=== PATIENT | female | born 1935 | race Caucasian/White ===

== ENCOUNTER 2017-06-21 09:23 | Inpatient (IN) | payer MEDICARE, OTHER ==
[2017-06-21 09:23] VITALS: BMI 24.6
--- NOTE | 2017-06-21 11:08 | C.PDOC ---
History Of Present Illness 81 year old female who presents to the ER with daughter for a complaints of questionable vaginal bleeding that began this morning. As per daughter, patient was sitting on the toilet when she noticed blood in the toilet but is unsure of the source. Daughter reports patient is on hemo dialysis, Wednesday, Wednesday, Wednesday, and states in the past they had her on heparin which would cause her to bleed vaginally. Daughter states they stopped the heparin which stopped vaginal bleeding stopped as well; however, she believes patient might have been started on heparin again. Patient's PMD is Dr. Martinez, nephologist is Dr. Guevara. Patient denies abdominal pain or other associated symptoms. Time Seen by Provider: 06/21/17 10:40 Chief Complaint (Nursing): Female Genitourinary History Per: Patient, Family History/Exam Limitations: no limitations Onset/Duration Of Symptoms: Hrs Current Symptoms Are (Timing): Still Present Quality Of Discomfort: Unable To Describe Associated Symptoms: denies: Fever, Nausea, Vomiting Alleviating Factors: None Recent travel outside of the [place]: No Past Medical History Reviewed: Historical Data, Nursing Documentation, Vital Signs Vital Signs: Last Vital Signs Temp 97.6 F 06/21/17 09:30 Pulse 67 06/21/17 13:11 Resp 16 06/21/17 13:11 BP 195/62 H 06/21/17 13:11 Pulse Ox 100 06/21/17 13:33 - Medical History PMH: Alzheimer's Disease, Anemia, Anxiety, CAD, CHF, COPD, Dementia, Depression , Fractures (pelvis), HTN, End Stage Renal Disease, Chronic Kidney Disease ( DIALYSIS 3X WK WED/WED/WED) Surgical History: CABG (2011) - [facility] Procedures HEMODIALYSIS (07/09/14) NON-INVASIVE MECHANICAL VENTILATION (10/09/13) PERFORMANCE OF URINARY FILTRATION, MULTIPLE (07/09/15) Family History: States: Unknown Family Hx - Social History Hx Tobacco Use: No Hx Alcohol Use: No Hx Substance Use: No - Immunization History Hx Tetanus Toxoid Vaccination: No Hx Influenza Vaccination: No Hx Pneumococcal Vaccination: Yes (2011) Review Of Systems Except As Marked, All Systems Reviewed And Found Negative. Constitutional: Negative for: Fever, Chills Cardiovascular: Negative for: Chest Pain, Palpitations, Light Headedness Respiratory: Negative for: Shortness of Breath Gastrointestinal: Negative for: Abdominal Pain Genitourinary: Positive for: Vaginal Bleeding (Questionable) Musculoskeletal: Negative for: Back Pain Skin: Negative for: Rash Neurological: Negative for: Dizziness Physical Exam - Physical Exam Appears: Non-toxic, No Acute Distress Skin: Normal Color, Warm, Dry Head: Atraumatic, Normacephalic Oral Mucosa: Moist Chest: Symmetrical Cardiovascular: Rhythm Regular Respiratory: Normal Breath Sounds, No Rales, No Rhonchi, No Wheezing Gastrointestinal/Abdominal: Soft, No Tenderness Rectal: Other (Positive bright red blood) Pelvic: Normal Bimanual Exam, No Vaginal Bleeding Neurological/Psych: Oriented x3, Normal Speech, Normal Cognition ED Course And Treatment - Laboratory Results Result Diagrams: 06/21/17 11:08 06/21/17 11:08 ECG: Interpreted By Me ECG Rhythm: Sinus Rhythm Rate From EC O2 Sat by Pulse Oximetry: 100 (Room air) Pulse Ox Interpretation: Normal - Radiology CXR: Interpreted by Me, Viewed By Me CXR Interpretation: Yes: No Acute Disease (Unchanged from prior) Progress - Re-Evaluation Re-evaluation Note: 06/21/17 11:59 EXAM UNCH VSS. PENDING CALLBACK PMD 06/21/17 12:25 PENDING CALLBACK PMD 06/21/17 13:27 D/W DR MARTINEZ WILL ADMIT PENDING CALLBACK DR GARCIA 06/21/17 13:38 D/W DR GUEVARA WILL CONSULT - Data Reviewed Data Reviewed: Lab, Diagnostic imaging, EKG, Old records - Continuity of Care Discussed patient case with:: Patient, Family-HIPPA compliant, PMD Discussed pt. case with warehouse consultant/specialty: Nephrology Medical Decision Making Medical Decision Making: Plan: * Blood work * EKG * CXR * Occult blood test * Protonix * Pepcid 11:59: Call placed out to Dr. Martinez, message left with answering service. 12:25: Second call placed out to Dr. Martinez, message left with answering service. Disposition Counseled Patient/Family Regarding: Studies Performed, Diagnosis - Disposition Disposition: HOSPITALIZED Disposition Time: 13:33 Condition: STABLE Forms: [facility] (Brazilian) - POA Present On Arrival: None - Clinical Impression Clinical Impression: ESRD on dialysis, GI bleed, Hyperkalemia - Scribe Statement The provider has reviewed the documentation as recorded by the Scribe Mendel Red All medical record entries made by the Anjelicaibstephany were at my direction and personally dictated by me. I have reviewed the chart and agree that the record accurately reflects my personal performance of the history, physical exam, medical decision making, and the department course for this patient. I have also personally directed, reviewed, and agree with the discharge instructions and disposition. Decision To Admit - Pt Status Changed To: Hospital Disposition Of: Inpatient - Admit Certification Admit to Inpatient:: After my assessment, the patient will require hospitalization for at least two midnights. This is because of the severity of symptoms shown, intensity of services needed, and/or the medical risk in this patient being treated as an outpatient. - InPatient: Physician Admission Certification: I certify that this patient requires 2 or more midnights of care for the following reason:: SEE NOTE - . Bed Request Type: Telemetry Admitting Physician: Tiffany Martinez Patient Diagnosis: ESRD on dialysis, GI bleed, Hyperkalemia
[2017-06-21] MEDS ORDERED: Pantoprazole 80 MG in Sodium Chloride 0.9% 100 ML IV STA (11:19)
[2017-06-21 11:22] LABS: BASO % 0.6 % (0.0-2.0); EOS # 0.1 K/uL (0.0-0.7); EOS % 1.3 % (0.0-4.0); HEMATOCRIT 37.1 % (34.0-47.0); LYMPH % 17.7 % (20.0-40.0); MEAN CELL VOLUME 104.6 fL (81.0-99.0); MEAN CORPUSCULAR HEMOGLOBIN 35.9 pg (27.0-31.0); MEAN CORPUSCULAR HGB CONC 34.3 g/dL (33.0-37.0); MEAN PLATELET VOLUME 9.1 fL (7.2-11.7); MONO # 0.5 K/uL (0.0-0.8); MONO % 9.1 % (0.0-10.0); RED CELL DISTRIBUTION WIDTH 15.8 % (11.5-14.5); WHITE BLOOD COUNT 5.7 K/uL (4.8-10.8)
[2017-06-21 11:30] LABS: INR 0.9
[2017-06-21 11:34] LABS: ALB/GLOB RATIO 1.2 (1.0-2.1); CALCIUM 9.5 mg/dl (8.6-10.4); TOTAL PROTEIN 7.9 g/dL (6.3-8.3)
[2017-06-21 11:56] LABS: POTASSIUM 6.2 mmol/L (3.6-5.2)
--- NOTE | 2017-06-21 12:03 | RAD ---
HISTORY: GI Bleeding COMPARISON: Chest x-ray performed 07/09/15 TECHNIQUE: Chest, one view. FINDINGS: LUNGS: Mild pulmonary venous congestion. Mild bibasilar atelectasis. Biapical pleural parenchymal scarring/ atelectasis. No significant pleural effusion or definite pneumothorax identified. Please note that chest x-ray has limited sensitivity for the detection of pulmonary masses. CARDIOVASCULAR: Cardiomegaly. Ectatic aorta. Dense atherosclerotic calcifications of the aorta. OSSEOUS STRUCTURES: Degenerative changes. VISUALIZED UPPER ABDOMEN: Unremarkable. OTHER FINDINGS: Surgical clips project over the right upper chest. IMPRESSION: Mild pulmonary venous congestion. Mild bibasilar atelectasis. Biapical pleural parenchymal scarring/ atelectasis. Cardiomegaly. Ectatic aorta. Dense atherosclerotic calcifications.
[2017-06-21] MEDS ORDERED: Bisacodyl 5mg EC Tab PO ONE ×4 (15:28→18:00)
[2017-06-21] MEDS ORDERED: Peg-Electrolyte Oral Soln 4L (Golytely) PO ONE (15:28)
--- NOTE | 2017-06-21 19:42 | CP.PCM.CON ---
History of Present Illness - History of Present Illness History of Present Illness: REASONS FOR CONSULT : ESRD ON HD M W F ESRD RELATED COMPLICATIONS SEVER HYPERKALEMIA .. K 6,2 NEEDS FOR STAT HD .. ORDERED CHART REV .. PT EXAMINED CASE D/W ER ATTENDING .. CASE D/W DR MARTINEZ 81 year old female who presents to the ER with daughter for a complaints of questionable vaginal bleeding that began this morning. As per daughter, patient was sitting on the toilet when she noticed blood in the toilet but is unsure of the source. Daughter reports patient is on hemo dialysis, Wednesday, Wednesday, Wednesday, and states in the past they had her on heparin which would cause her to bleed vaginally. Daughter states they stopped the heparin which stopped vaginal bleeding stopped as well; however, she believes patient might have been started on heparin again. Patient's PMD is Dr. Martinez, nephologist is Dr. Tobar. Patient denies abdominal pain or other associated symptoms. Time Seen by Provider: 06/21/17 10:40 Chief Complaint (Nursing): Female Genitourinary History Per: Patient, Family History/Exam Limitations: no limitations Onset/Duration Of Symptoms: Hrs Current Symptoms Are (Timing): Still Present Quality Of Discomfort: Unable To Describe Associated Symptoms: denies: Fever, Nausea, Vomiting Alleviating Factors: None Recent travel outside of the [place]: No Past Medical History Reviewed: Historical Data, Nursing Documentation, Vital Signs Vital Signs: Last Vital Signs Temp 97.6 F 06/21/17 09:30 Pulse 67 06/21/17 13:11 Resp 16 06/21/17 13:11 BP 195/62 H 06/21/17 13:11 Pulse Ox 100 06/21/17 13:33 - Medical History PMH: Alzheimer's Disease, Anemia, Anxiety, CAD, CHF, COPD, Dementia, Depression , Fractures (pelvis), HTN, End Stage Renal Disease, Chronic Kidney Disease ( DIALYSIS 3X WK WED/WED/WED) Surgical History: CABG (2011) - [facility] Procedures HEMODIALYSIS (07/09/14) NON-INVASIVE MECHANICAL VENTILATION (10/09/13) PERFORMANCE OF URINARY FILTRATION, MULTIPLE (07/09/15) Family History: States: Unknown Family Hx - Social History Hx Tobacco Use: No Hx Alcohol Use: No Hx Substance Use: No Past Patient History - Infectious Disease Hx of Infectious Diseases: None - Past Medical History & Family History Past Medical History?: Yes - Past Social History Smoking Status: Never Smoked - CARDIAC Hx Congestive Heart Failure: Yes Hx Hypertension: Yes - PULMONARY Hx Chronic Obstructive Pulmonary Disease (COPD): Yes - NEUROLOGICAL Hx Alzheimer's Disease: Yes Hx Dementia: Yes - HEENT Hx HEENT Problems: Yes Hx Cataracts: Yes - RENAL Hx Chronic Kidney Disease: Yes (DIALYSIS 3X WK MON/WED/FRI) - ENDOCRINE/METABOLIC Hx Endocrine Disorders: No - HEMATOLOGICAL/ONCOLOGICAL Hx Anemia: Yes - INTEGUMENTARY Hx Dermatological Problems: No - MUSCULOSKELETAL/RHEUMATOLOGICAL Hx Fractures: Yes (pelvis) - GASTROINTESTINAL Hx Gastrointestinal Disorders: No - GENITOURINARY/GYNECOLOGICAL Hx Genitourinary Disorders: No - PSYCHIATRIC Hx Anxiety: Yes Hx Depression: Yes Hx Substance Use: No - SURGICAL HISTORY Hx Coronary Artery Bypass Graft: Yes (2011) - ANESTHESIA Hx Anesthesia: Yes Hx Anesthesia Reactions: No Meds Allergies/Adverse Reactions: Allergies Allergy/AdvReac Type Severity Reaction Status Date / Time aspirin Allergy Mild RASH Verified 11/29/16 11:17 Penicillins Allergy Verified 06/21/17 10:01 Results - Vital Signs Recent Vital Signs: Last Vital Signs Temp 98 F 06/21/17 18:55 Pulse 67 06/21/17 18:55 Resp 16 06/21/17 18:55 BP 113/87 06/21/17 18:55 Pulse Ox 98 06/21/17 18:55 - Labs Result Diagrams: 06/21/17 11:08 06/21/17 11:08 Labs: Laboratory Results - last 24 hr 06/21/17 06/21/17 06/21/17 11:08 11:08 11:08 WBC 5.7 RBC 3.55 L Hgb 12.7 D Hct 37.1 MCV 104.6 H D MCH 35.9 H MCHC 34.3 RDW 15.8 H Plt Count 131 MPV 9.1 Neut % (Auto) 71.3 Lymph % (Auto) 17.7 L Crosby % (Auto) 9.1 Eos % (Auto) 1.3 Baso % (Auto) 0.6 Neut # 4.1 Lymph # 1.0 Crosby # 0.5 Eos # 0.1 Baso # 0.0 PT 10.2 INR 0.9 APTT 44 H Sodium 130 L Potassium 6.2 H* Chloride 90 L Carbon Dioxide 23 Anion Gap 23 H BUN 74 H Creatinine 6.7 H Est GFR ( Amer) 7 Est GFR (Non-Af Amer) 6 Random Glucose 75 Calcium 9.5 Total Bilirubin 1.0 AST 35 ALT 30 Alkaline Phosphatase 136 H Total Protein 7.9 Albumin 4.2 Globulin 3.7 Albumin/Globulin Ratio 1.2 Stool Occult Blood Blood Type Antibody Screen 06/21/17 06/21/17 11:43 11:57 WBC RBC Hgb Hct MCV MCH MCHC RDW Plt Count MPV Neut % (Auto) Lymph % (Auto) Crosby % (Auto) Eos % (Auto) Baso % (Auto) Neut # Lymph # Crosby # Eos # Baso # PT INR APTT Sodium Potassium Chloride Carbon Dioxide Anion Gap BUN Creatinine Est GFR ( Amer) Est GFR (Non-Af Amer) Random Glucose Calcium Total Bilirubin AST ALT Alkaline Phosphatase Total Protein Albumin Globulin Albumin/Globulin Ratio Stool Occult Blood Positive H Blood Type O POSITIVE Antibody Screen Negative Assessment & Plan - Assessment and Plan (Free Text) Assessment: ESRD WITH HYPERKALEMIA .. HD PRDERED STAT CAME IN WITH GI BLEED MULTIPLE CO MORBIDITIES C/O CURRENT CARE STAT HD .. GIVEN - Date & Time Date: 06/21/17 Time: 14:00
[2017-06-22] MEDS ORDERED: Bisacodyl 5mg EC Tab PO ONE ×2 (06:00→17:00)
[2017-06-22 09:02] LABS: POTASSIUM 4.8 mmol/L (3.6-5.2)
[2017-06-22 09:04] LABS: ALB/GLOB RATIO 1.1 (1.0-2.1); TOTAL PROTEIN 6.7 g/dL (6.3-8.3)
--- NOTE | 2017-06-22 09:12 | HP ---
HISTORY OF PRESENT ILLNESS: This is an 81-year-old female with end-stage renal disease, on hemodialysis and history of hypertension. The patient presented to the emergency room with symptoms of rectal bleeding x1 day. The patient had no active bleeding at the time of this evaluation, but as per ER physician evaluation, the patient had rectal exam that was positive for blood. The patient denied to have any similar symptoms before. She denied to have any shortness of breath or chest pain. The patient denied to have any abdominal pain. The patient declined to have colonoscopy before. REVIEW OF SYSTEMS: Other review of system is negative. ALLERGIES: THE PATIENT HAS ALLERGY TO ASPIRIN AND PENICILLIN. HOME MEDICATIONS: Include hydralazine 1 tablet three times a day, bisoprolol 1 tablet twice a day, amlodipine 5 mg daily, and Renvela 800 mg three times a day. PAST MEDICAL HISTORY: Hypertension and end-stage renal disease, on hemodialysis. SOCIAL HISTORY: No history of smoking, EtOH or substance abuse. FAMILY HISTORY: Noncontributory. PHYSICAL EXAMINATION: GENERAL: The patient is comfortable in bed, not in any cardiopulmonary distress. VITAL SIGNS: Blood pressure 158/56, temperature 97.9, respiratory rate 16, and pulse 67. HEENT: Pupils are equal and reactive to light. Normal-appearing mucosa of the conjunctivae, oropharynx, and nasal membrane mucosa. NECK: Supple. No JVD. No carotid bruits. No lymph node. No thyromegaly. CHEST AND LUNGS: Bilateral symmetrical expansion. Good air exchange. No rales. No rhonchi. CARDIOVASCULAR SYSTEM: PMI not localized. S1 and S2. No additional sounds. ABDOMEN: Normoactive bowel sounds. No tenderness. No organomegaly. No masses. EXTREMITIES: No cyanosis. No clubbing. No edema. KNITTED GARMENT FINISHER: Alert, awake, and oriented x2 and no neurological deficits could be appreciated. ASSESSMENT: 1. Rectal bleeding. 2. Hypertension. 3. End-stage renal disease, on hemodialysis. PLAN: We will give the patient Protonix, GI consult, and continue hemodialysis as per batch unit treater and follow up with GI recommendations and resume the patient's medications for hypertension. Tiffany Martinez MD [facility] # [id number]
[2017-06-22] MEDS ORDERED: Midazolam 2 MG/2 ML VIAL ONE (11:24)
[2017-06-22] MEDS ORDERED: Propofol 10 mg/ml Inj (20 ML) ONE (11:24)
[2017-06-22] MEDS ORDERED: Lidocaine Hydrochloride 10 ML INJ ONE (11:41)
[2017-06-22 11:50] LABS: BASO % 0.9 % (0.0-2.0); EOS # 0.1 K/uL (0.0-0.7); EOS % 1.9 % (0.0-4.0); HEMATOCRIT 35.2 % (34.0-47.0); LYMPH # 0.9 K/uL (1.0-4.3); LYMPH % 20.7 % (20.0-40.0); MEAN CELL VOLUME 104.6 fL (81.0-99.0); MEAN CORPUSCULAR HEMOGLOBIN 35.7 pg (27.0-31.0); MEAN CORPUSCULAR HGB CONC 34.1 g/dL (33.0-37.0); MEAN PLATELET VOLUME 9.1 fL (7.2-11.7); MONO # 0.5 K/uL (0.0-0.8); MONO % 11.6 % (0.0-10.0); RED CELL DISTRIBUTION WIDTH 15.9 % (11.5-14.5); WHITE BLOOD COUNT 4.5 K/uL (4.8-10.8)
[2017-06-22 12:06] LABS: POTASSIUM 4.7 mmol/L (3.6-5.2)
[2017-06-22] MEDS ORDERED: Peg-Electrolyte Oral Soln 4L (Golytely) PO ONE (13:00)
--- NOTE | 2017-06-22 18:40 | CP.PCM.PN ---
Subjective - Date & Time of Evaluation Date of Evaluation: 06/22/17 Time of Evaluation: 12:00 - Subjective Subjective: HAD HD YESTERDAY STAT FOR HYPERKALEMIA OFF THE FLOOR FOR EGD D/W DR JONES ,GI Objective - Vital Signs/Intake and Output Vital Signs (last 24 hours): Temp Pulse Resp BP Pulse Ox 98 F 93 H 20 190/67 H 97 06/22/17 15:43 06/22/17 15:43 06/22/17 15:43 06/22/17 15:43 06/22/17 15:43 Intake and Output: 06/22/17 06/22/17 06:59 18:59 Intake Total 200 375 Balance 200 375 - Medications Medications: Current Medications Metoclopramide HCl (Reglan) 5 mg IVP Q6 RACHEL - Labs Labs: 06/22/17 11:40 06/22/17 11:40 PT 10.2 SECONDS (9.7-12.2) 06/21/17 11:08 INR 0.9 06/21/17 11:08 APTT 44 SECONDS (21-34) H 06/21/17 11:08 Assessment and Plan - Assessment and Plan (Free Text) Assessment: ESRD ON HD M W F ANEMIA OF CKD .. H/H STABLE C/O CURRENT CARE FOR COLONOSCOPY IN AM PER DR JONES
--- NOTE | 2017-06-22 21:57 | PN ---
DATE: 06/22/2017 SUBJECTIVE: The patient is seen today, 06/22/2017. She is not in any cardiopulmonary distress. PHYSICAL EXAMINATION: VITAL SIGNS: Blood pressure 190/65, temperature 97.1, respiratory 20 and pulse 68. HEENT: Pupils equal and reactive to light. Normal-appearing mucosa of the conjunctivae, oropharynx and nasal membrane mucosa. NECK: Supple. No JVD. No carotid bruit. No lymph node. No thyromegaly. CHEST AND LUNGS: Bilateral symmetrical expansion. Good air exchange. No rales. No rhonchi. CARDIOVASCULAR SYSTEM: PMI not localized. S1 and S2. No additional sounds. ABDOMEN: Normoactive bowel sounds. No tenderness. No organomegaly. No masses. EXTREMITIES: No cyanosis. No clubbing. No edema. CENTRAL NERVOUS SYSTEM: Alert, awake, and oriented x2. No neurological deficits could be appreciated. ASSESSMENT: 1. Lower gastrointestinal bleeding. 2. End-stage renal disease, on hemodialysis. 3. Hypertension. PLAN: Continue current medications including proton-pump inhibitors. Follow the GI recommendations. The patient is being prepared for colonoscopy tomorrow. She is status post EGD today. Tiffany Martinez MD
[2017-06-23] MEDS ORDERED: Propofol 10 mg/ml Inj (20 ML) ONE (11:43)
[2017-06-23] MEDS ORDERED: Lidocaine Hydrochloride 5 ML INJ ONE (11:44)
[2017-06-23] MEDS ORDERED: Sodium Chloride 0.9% 500 ML IV ONE (11:46)
[2017-06-23] MEDS ORDERED: Belladonna-Phenobarbital PO STA (12:11)
--- NOTE | 2017-06-23 22:54 | CARD ---
APPROVED REPORT EKG Measurement Heart [id number] ID [id number] <Conclusion> Normal sinus rhythm Moderate voltage criteria for LVH, may be normal variant Nonspecific ST and T wave abnormality Abnormal ECG
--- NOTE | 2017-06-23 23:57 | CP.PCM.PN ---
Subjective - Date & Time of Evaluation Date of Evaluation: 06/23/17 Time of Evaluation: 12:00 - Subjective Subjective: DAUGHTER WAS FOUND ON THE BED SIDE PT IS OFF THE FLOOR FOR COLONOSCOPY PT ON HD M W F TO GET HER HD AFTER HER COLONOSCOPY ALL PREVIOUS EMR REVIEWED Objective - Vital Signs/Intake and Output Vital Signs (last 24 hours): Temp Pulse Resp BP Pulse Ox 98.5 F 71 18 137/58 L 95 06/23/17 19:11 06/23/17 19:55 06/23/17 19:11 06/23/17 19:55 06/23/17 19:11 - Medications Medications: Current Medications Amlodipine Besylate (Norvasc) 5 mg PO DAILY [facility] Last Admin: 06/23/17 10:00 Dose: Not Given Bisoprolol Fumarate (Zebeta) 5 mg PO BID [facility] Last Admin: 06/23/17 19:52 Dose: 5 mg Hydralazine HCl (Apresoline) 25 mg PO BID [facility] Last Admin: 06/23/17 19:52 Dose: 25 mg Metoclopramide HCl (Reglan) 5 mg IVP Q6 [facility] Last Admin: 06/23/17 19:51 Dose: 5 mg Sevelamer Carbonate (Renvela) 800 mg PO TIDAC [facility] Last Admin: 06/23/17 19:51 Dose: 800 mg - Labs Labs: 06/22/17 11:40 06/22/17 11:40 PT 10.2 SECONDS (9.7-12.2) 06/21/17 11:08 INR 0.9 06/21/17 11:08 APTT 44 SECONDS (21-34) H 06/21/17 11:08 Assessment and Plan - Assessment and Plan (Free Text) Assessment: ESRD ON HD W ANEMIA OF CKD .. H/H STABLE ALSO CAME IN WITH LOWER GI BLEED P : C/O CURRENT CARE
--- NOTE | 2017-06-24 03:31 | CON ---
DATE: 06/21/[address] Lianne Shannon to Dr. Tiffany Martinez. I was called for GI consultation by the admitting medical team. The patient is seen and fully examined on 06/21/2017 as requested by the admitting community as well as ER physician. The entire chart is reviewed including, but not limited to the most recent lab and radiology study results, current and the previous medication list, current and the previous medical events, allergy to medication list as well as all the available current and the previous medical records. Case was discussed at length with the staff in the emergency room as well as in the floor. HISTORY OF PRESENT ILLNESS: This is an 81-year-old female, who was admitted to the hospital through the emergency room in association with her daughter with the complain of rectal bleeding with questionable vaginal bleeding, most recent hemodialysis, she had been on heparin during her dialysis. Has to be mentioned that the patient recently had stopped the heparin on dialysis according to the daughter's statement despite source of bleeding rectally, reoccurred. No reported other significant complaints of mild dyspepsia with nausea recently and intermittent periods of crampy abdominal pain, mild. No chest pain or palpitation. No chills or fever. No reported significant complain shortness of breath. Has to be mentioned that all the information also obtained from the medical record, medical staff records as well as the patient's daughter. PAST MEDICAL HISTORY: Including but not limited to mainly: 1. Hypertension with congestive failure. 2. COPD. 3. Congestive heart failure. 4. End-stage renal disease, on hemodialysis. 5. Severe anxiety syndrome. 6. Questionable early stage of Alzheimer's disease. 7. Pelvic fracture before. 8. Coronary artery disease status post CABG. FAMILY HISTORY: Unknown. SOCIAL HISTORY: Known history of cigarette smoking or alcohol intake recently. CURRENT MEDICATIONS: Medication list are reviewed. ALLERGIES TO MEDICATIONS: UNCLEAR. PHYSICAL EXAMINATION: GENERAL: An 81-year-old female appeared to be awake, alert and oriented, communicating well with few Korean, but mainly a Kazakh language. VITAL SIGNS: The patient is afebrile with pulse of 73, respiratory rate 10 to 20, blood pressure of 192/60. HEENT: Showed dry oral mucous membrane. Nonicteric sclerae. LYMPH NODES: No lymphadenitis or lymphadenopathy. LUNGS: Few scattered marked crepitation. Breathing sounds are present bilaterally. HEART: Positive S1 and S2. ABDOMEN: Soft with mild generalized tenderness and slight distension. No mass or organomegaly. No rebound tenderness or guarding. RECTAL: Positive tone with trace of fresh blood. EXTREMITIES: With evidence of muscle wasting syndrome. No clubbing or cyanosis. No edematous changes. NEUROLOGIC: No reported new neurological deficits, sensory or motor. LABORATORY DATA: Initial blood workup at the time of the admission showed normal CBC, but increased BUN of 74, creatinine elevated to 6.7 with low sodium 130, with increase potassium 6.2, low calcium and elevated phosphorous. IMPRESSION: 1. Gastrointestinal bleeding, upper versus lower. 2. To rule out occult gastrointestinal malignancy. 3. To rule out gastric versus duodenal ulcer. 4. Electrolyte imbalance with hyponatremia, hyperkalemia. 5. Chronic renal failure, on hemodialysis. 6. Multiple past medical history including, but not limited to hypertension, congestive heart failure, coronary artery disease status post coronary artery bypass grafting as per record. 7. Known history of chronic obstructive pulmonary disease. 8. Depression by history. 9. Pelvic fracture by history as well as severe anxiety syndrome with previous history of anemia. SUGGESTIONS: 1. Agree with your plan. 2. Correct any underlying coagulopathy. 3. Cancer markers including CEA and CA-125 as well as CA-19-9. 4. Proton pump inhibitors. 5. Antireflux measures. 6. Sectional abdominal and pelvic CAT scan. 7. Endoscopic evaluation of the upper and lower GI tract when the patient is more stable clinically and after adequate preparation. 8. The patient for emergency hemodialysis. 9. Further recommendation to follow. Thank you for letting me to participate in your patient's case management. Lianne Shannon MD cc: Lianne Shannon MD
[2017-06-24 07:48] LABS: BASO % 0.7 % (0.0-2.0); EOS # 0.1 K/uL (0.0-0.7); EOS % 1.4 % (0.0-4.0); HEMATOCRIT 31.9 % (34.0-47.0); LYMPH # 0.7 K/uL (1.0-4.3); LYMPH % 13.9 % (20.0-40.0); MEAN CELL VOLUME 103.4 fL (81.0-99.0); MEAN CORPUSCULAR HEMOGLOBIN 35.5 pg (27.0-31.0); MEAN CORPUSCULAR HGB CONC 34.3 g/dL (33.0-37.0); MEAN PLATELET VOLUME 9.2 fL (7.2-11.7); MONO # 0.7 K/uL (0.0-0.8); MONO % 12.7 % (0.0-10.0); RED CELL DISTRIBUTION WIDTH 15.8 % (11.5-14.5); WHITE BLOOD COUNT 5.4 K/uL (4.8-10.8)
[2017-06-24 08:15] LABS: POTASSIUM 4.1 mmol/L (3.6-5.2)
[2017-06-24 08:18] LABS: CALCIUM 8.1 mg/dl (8.6-10.4)
--- NOTE | 2017-06-24 13:07 | PN ---
DATE: LOCATION: Room 652, Bed B. SUBJECTIVE: This is an 81-year-old female seen and examined around today, both upper and lower endoscopy, pathology report is still pending. Appear to be more awake and alert. Had been having hemodialysis, reported immediate complications. The entire chart is reviewed including, but not limited to the most recent lab and radiology study results, current and the previous medication list, current and the previous medical events. Case discussed at length with the staff and all the consultants. Today's lab showed hemoglobin dropped to 10.9 with dropped hematocrit of 31.9 with low sodium 131, and BUN went down to 22 and creatinine went down to 3.7 with low calcium at 8.1, previously done stool for occult blood was positive. PHYSICAL EXAMINATION: GENERAL: An 81-year-old female appeared to be more awake, alert. VITAL SIGNS: Afebrile with pulse of 72, respiratory rate 20-22 with blood pressure of 180/64. HEENT: Showed pale dry oral mucous membrane, nonicteric sclerae. LUNGS: Few scattered crepitation. Decreased air entry at bases. HEART: Positive S1 and S2. ABDOMEN: Soft with slight generalized tenderness. No mass or organomegaly. No rebound tenderness or guarding. RECTAL: The patient refused. EXTREMITIES: Without significant clinical or neurological changes recently. IMPRESSION: 1. Gastrointestinal blood loss. 2. Peptic ulcer disease. 3. Known history of hypertension, congestive heart failure with chronic obstructive pulmonary disease. 4. Endstage renal disease on hemodialysis. 5. Severe anxiety syndrome. 6. Anemia most likely secondary to above. 7. Known history of depression. 8. Diffuse diverticulosis by recent colonoscopy. SUGGESTIONS: 1. Agree with your plan. 2. Adjust oral intake. 3. Blood transfusion only as needed. Lianne Shannon MD cc: Lianne Shannon MD
--- NOTE | 2017-06-24 16:29 | CP.PCM.PN ---
Subjective - Date & Time of Evaluation Date of Evaluation: 06/24/17 Time of Evaluation: 14:00 - Subjective Subjective: SEEN ON RENAL F/U FEELS BETTER ON HD M W F ALL ABOVE NOTES READ Objective - Vital Signs/Intake and Output Vital Signs (last 24 hours): Temp Pulse Resp BP Pulse Ox 98 F 71 20 178/70 H 96 06/24/17 15:00 06/24/17 15:00 06/24/17 15:00 06/24/17 15:00 06/24/17 15:00 Intake and Output: 06/24/17 06/24/17 06:59 18:59 Intake Total 350 Balance 350 - Medications Medications: Current Medications Amlodipine Besylate (Norvasc) 5 mg PO DAILY [facility] Last Admin: 06/24/17 09:22 Dose: 5 mg Bisoprolol Fumarate (Zebeta) 5 mg PO BID [facility] Last Admin: 06/24/17 09:24 Dose: 5 mg Hydralazine HCl (Apresoline) 25 mg PO BID [facility] Last Admin: 06/24/17 09:22 Dose: 25 mg Metoclopramide HCl (Reglan) 5 mg IVP Q6 [facility] Last Admin: 06/24/17 12:30 Dose: 5 mg Sevelamer Carbonate (Renvela) 800 mg PO TIDAC [facility] Last Admin: 06/24/17 12:00 Dose: 800 mg - Labs Labs: 06/24/17 07:33 06/24/17 07:33 PT 10.2 SECONDS (9.7-12.2) 06/21/17 11:08 INR 0.9 06/21/17 11:08 APTT 44 SECONDS (21-34) H 06/21/17 11:08 Assessment and Plan - Assessment and Plan (Free Text) Assessment: ESRD ON HD M W ANEMIA OF CKD .. WELL GIB .. H/H STABLE C/O CURRENT CARE
[2017-06-25 06:32] LABS: BASO % 0.7 % (0.0-2.0); EOS # 0.1 K/uL (0.0-0.7); EOS % 1.8 % (0.0-4.0); HEMATOCRIT 31.9 % (34.0-47.0); LYMPH # 1.4 K/uL (1.0-4.3); LYMPH % 19.3 % (20.0-40.0); MEAN CORPUSCULAR HEMOGLOBIN 35.1 pg (27.0-31.0); MEAN CORPUSCULAR HGB CONC 33.8 g/dL (33.0-37.0); MEAN PLATELET VOLUME 9.1 fL (7.2-11.7); MONO # 0.8 K/uL (0.0-0.8); MONO % 11.2 % (0.0-10.0); RED CELL DISTRIBUTION WIDTH 15.7 % (11.5-14.5)
[2017-06-25 09:43] VITALS: O2SAT 98
--- NOTE | 2017-06-25 15:09 | CP.PCM.PN ---
Subjective - Date & Time of Evaluation Date of Evaluation: 06/25/17 Time of Evaluation: 15:10 - Subjective Subjective: ALERT, AWAKE, NO ACTIVE BLEEDING, NO DISTRESS. Objective - Vital Signs/Intake and Output Vital Signs (last 24 hours): Temp Pulse Resp BP Pulse Ox 97.3 F L 65 18 149/60 98 06/25/17 12:05 06/25/17 12:05 06/25/17 12:05 06/25/17 12:05 06/25/17 12:05 Intake and Output: 06/25/17 06/25/17 06:59 18:59 Intake Total 500 Balance 500 - Medications Medications: Current Medications Amlodipine Besylate (Norvasc) 5 mg PO DAILY [facility] Last Admin: 06/25/17 12:47 Dose: 5 mg Bisoprolol Fumarate (Zebeta) 5 mg PO BID [facility] Last Admin: 06/25/17 12:47 Dose: 5 mg Hydralazine HCl (Apresoline) 25 mg PO BID [facility] Last Admin: 06/25/17 12:47 Dose: 25 mg Metoclopramide HCl (Reglan) 5 mg IVP Q6 [facility] Last Admin: 06/25/17 12:47 Dose: 5 mg Sevelamer Carbonate (Renvela) 800 mg PO TIDAC [facility] Last Admin: 06/25/17 12:45 Dose: 800 mg - Labs Labs: 06/25/17 06:19 06/24/17 07:33 PT 10.2 SECONDS (9.7-12.2) 06/21/17 11:08 INR 0.9 06/21/17 11:08 APTT 44 SECONDS (21-34) H 06/21/17 11:08 Assessment and Plan - Assessment and Plan (Free Text) Assessment: Patient is seen and examined, post HD today. Alert, awake, denies sob or chest pains. Hemoglobin stabilized, no active bleeding. D/W DR Martinez, plan to discharge home today. Advised to f/u with PMD in 1 week.
--- NOTE | 2017-06-25 15:19 | PCM.HF ---
Heart Failure Core Measure - Heart Failure Ejection Fraction: 40 % or Greater (EF 66%) CAM Inhibitor Prescribed: No Contraindication/Reason for not providing: ESRD Beta-Thony Prescribed: Bisoprolol Angiotensin II Receptor Thony Prescribed: No Contraindication/Reason for not providing: ESRD AnticoagulationTherapy for Atrial Fibrillation/Atrialflutter: No Contraindication/Reason for not providing: NO HX AFIB Aldosterone Antagonist Prescribed: No Contraindication/Reason for not providing: EF >40 Hydralazine Nitrate Prescribed: Yes Implantable Cardioverter Defibrillator Therapy: No Contraindication/Reason for not providing: NO AICD AND EF >40 Cardiac Resynchronization Therapy Prescribed: No Contraindication/Reason for not providing: NO AICD AND EF >40 - Follow up Will be discharged to: Home Follow Up Date (must be within 7 days from discharge): 06/30/17 Follow Up Time: 09:00
[2017-06-25 15:34] VITALS: BP 198/75; PULSE 75; RESP 20; TEMP 98.6
--- NOTE | 2017-06-25 17:17 | PN ---
DATE: LOCATION: [facility], bed A. SUBJECTIVE: This is an 81-year-old female, seen and examined in rounds, during hemodialysis earlier this morning without reported active bleeding. The patient tolerated oral intake well. No reported chest pain, nausea, vomiting, chills or palpitation. The entire chart is reviewed including, but not limited to most recent lab and radiological results, current and the previous medication list, current and the previous medical events. Case discussed at length with the staff in the floor as well as with Dr. Martinez, admitting MD. Today's lab showed hemoglobin still low of 10.8 with low hematocrit of 31.9, but normal platelet count was reported before low sodium of 130 with increased BUN 22, creatinine 3.7 with low calcium. Stool for occult blood previously reported to be positive. PHYSICAL EXAMINATION: GENERAL: An 81-year-old female appeared to be awake and alert. VITAL SIGNS: Afebrile with pulse of 68, blood pressure of 130/54 with respiratory rate of 18 to 20. HEENT: Showed mildly pale dry oral mucoid membrane. Nonicteric sclerae. LUNGS: Few scattered crepitation. Decreased air entry at bases. HEART: Positive S1 and S2. ABDOMEN: Soft. Bowel sounds are present. No mass or organomegaly. No rebound tenderness or guarding. RECTAL: The patient refused. EXTREMITIES: Without significant edema, clubbing or cyanosis. NEUROLOGIC: No reported new neurological deficits, sensory or motor. IMPRESSION: 1. Gastrointestinal blood loss. 2. Anemia secondary to gastrointestinal blood loss. 3. Peptic ulcer disease. 4. Known history, but not limited to hypertension, chronic obstructive pulmonary disease, congestive heart failure. 5. Endstage renal disease. 6. Diffuse diverticulosis with left-sided colitis by recent colonoscopy as well as internal hemorrhoid. 7. Known history of depression and severe anxiety syndrome. SUGGESTIONS: 1. Continue current management. 2. Adjust oral intake with no seeds and no citrus. 3. Followup with cancer marker. Lianne Shanonn MD cc: Lianne Shannon MD
--- NOTE | 2017-06-26 01:57 | DS ---
REASON FOR ADMISSION: This is an 81-year-old female with history of multiple medical problems including end-stage renal disease on hemodialysis, was admitted for rectal bleeding. COURSE OF HOSPITALIZATION: The patient was admitted through medical floor and she had a GI consultation done by Dr. Crane. The patient underwent an EGD followed by colonoscopy. There was no active bleeding and the patient had only internal hemorrhoids and diverticulosis. The patient was stabilized and she was discharged home to continue her preadmission medications. The patient was advised to avoid NSAIDs and to follow with Dr. Crane and with Dr. Martinez. FINAL DIAGNOSES: 1. Rectal bleeding likely secondary to internal hemorrhoids and diverticulosis. 2. End-stage renal disease on hemodialysis. 3. Hypertension. [facility] MD Juan
== END 2017-06-25 15:49 | disposition home or self-care (01) | DRG 368 ==
LOC: C.ER 09:23 → C.9E 13:36 → C.6T 18:32
PROVIDERS: ADMIT Internal Medicine; ATTEND Internal Medicine
PROC: 5A1D70Z Performance of Urinary Filtration, Intermittent, Less than 6 Hours Per Day (ICD-10-PCS; 2017-06-21)
PROC: 0DDM8ZX Extraction of Descending Colon, Via Natural or Artificial Opening Endoscopic, Diagnostic (ICD-10-PCS; 2017-06-23)
PROC: 0DD68ZX Extraction of Stomach, Via Natural or Artificial Opening Endoscopic, Diagnostic (ICD-10-PCS; principal; 2017-06-23 11:52)
DX: B37.81 Candidal esophagitis (principal); N18.6 End stage renal disease; I13.2 Hypertensive heart and chronic kidney disease with heart failure and with stage 5 chronic kidney disease, or end stage renal disease; E87.1 Hypo-osmolality and hyponatremia; E87.5 Hyperkalemia; G30.9 Alzheimer's disease, unspecified; F02.80 Dementia in other diseases classified elsewhere, unspecified severity, without behavioral disturbance, psychotic disturbance, mood disturbance, and anxiety; D50.0 Iron deficiency anemia secondary to blood loss (chronic); K64.8 Other hemorrhoids; K57.90 Diverticulosis of intestine, part unspecified, without perforation or abscess without bleeding; K22.8 Other specified diseases of esophagus; K20.8 Other esophagitis; K44.9 Diaphragmatic hernia without obstruction or gangrene; K63.89 Other specified diseases of intestine; F41.9 Anxiety disorder, unspecified; I50.9 Heart failure, unspecified; I25.10 Atherosclerotic heart disease of native coronary artery without angina pectoris; J44.9 Chronic obstructive pulmonary disease, unspecified; D63.1 Anemia in chronic kidney disease; Z87.891 Personal history of nicotine dependence; Z95.1 Presence of aortocoronary bypass graft; Z99.2 Dependence on renal dialysis

== ENCOUNTER 2018-11-27 11:20 | Observation (INO) | payer MEDICARE, OTHER ==
[2018-11-27 11:20] VITALS: BMI 24.6
[2018-11-27] MEDS ORDERED: Sodium Chloride 0.9% 1,000 ML IV ONE (11:51)
[2018-11-27] MEDS ORDERED: Pantoprazole 80 MG in Sodium Chloride 0.9% 100 ML IV STA (11:51)
[2018-11-27] MEDS ORDERED: Sodium Chloride 0.9% 1,000 ML ONE (12:05)
--- NOTE | 2018-11-27 12:25 | C.PDOC ---
History Of Present Illness 82 year old female with a history of ESRD and A. fib, on Eliquis presents to the emergency department with complaints of GI bleed. Patient states that today she vomited coffee ground material, associated with epigastric discomfort. Patient denies fever, rectal bleed, and states that her last dialysis was yesterday. Time Seen by Provider: 11/27/18 11:48 Chief Complaint (Nursing): GI Problem History Per: Patient History/Exam Limitations: no limitations Onset/Duration Of Symptoms: Hrs Current Symptoms Are (Timing): Still Present Number Of Bleeding Episodes: One Quality Of Discomfort: "Pain" Associated Symptoms: Vomiting, Hematemesis, Coffee Ground material. denies: Nausea, Rectal Bleeding Past Medical History Reviewed: Historical Data, Nursing Documentation, Vital Signs Vital Signs: Last Vital Signs Temp 98.9 F 11/27/18 11:35 Pulse 150 H 11/27/18 11:35 Resp 20 11/27/18 11:35 BP 177/82 H 11/27/18 11:35 Pulse Ox 98 11/27/18 11:35 - Medical History PMH: Alzheimer's Disease, Anemia, Anxiety, CAD, CHF, COPD, Dementia, Depression, Fractures (pelvis), HTN, End Stage Renal Disease, Chronic Kidney Disease Denies: Kidney Stones Surgical History: CABG (2011) Denies: Appendectomy, Hernia Repair, Pacemaker - [facility] Procedures (06/21/17) (06/21/17) (06/21/17) HEMODIALYSIS (07/09/14) NON-INVASIVE MECHANICAL VENTILATION (10/09/13) PERFORMANCE OF URINARY FILTRATION, MULTIPLE (07/09/15) Family History: States: No Known Family Hx - Social History Hx Tobacco Use: No Hx Alcohol Use: No Hx Substance Use: No - Immunization History Hx Tetanus Toxoid Vaccination: No Hx Influenza Vaccination: No Hx Pneumococcal Vaccination: Yes (2011) Review Of Systems Except As Marked, All Systems Reviewed And Found Negative. Constitutional: Negative for: Fever, Chills Cardiovascular: Negative for: Chest Pain Respiratory: Negative for: Cough, Shortness of Breath Gastrointestinal: Positive for: Vomiting, Abdominal Pain, Hematemesis (coffee- ground material). Negative for: Nausea, Diarrhea Physical Exam - Physical Exam Appears: Non-toxic, No Acute Distress Skin: Normal Color, Warm, Dry Head: Atraumatic, Normacephalic Eye(s): bilateral: Normal Inspection, PERRL, EOMI Nose: Normal Oral Mucosa: Moist Lips: Other (coffee-ground material around lips) Throat: Normal, No Erythema, No Exudate Neck: Normal, Supple Cardiovascular: Rhythm Irregular, No Murmur Respiratory: Normal Breath Sounds, No Rales, No Rhonchi, No Wheezing Gastrointestinal/Abdominal: Soft, Tenderness (mild epigastric tenderness), No Guarding, No Rebound Rectal: Heme Negative Extremity: Normal ROM Neurological/Psych: Oriented x3, Normal Speech, Normal Cognition ED Course And Treatment - Laboratory Results Result Diagrams: 11/27/18 12:23 11/27/18 12:23 Interpretation Of ECG: Atrial fibrillation at 148 bpm, ST depression in lateral leads. O2 Sat by Pulse Oximetry: 98 (RA) Pulse Ox Interpretation: Normal - Other Rad CXR X-Ray: Viewed By Me, Read By Radiologist Interpretation: Surgical clips project over the lateral aspect of the right upper lung zone. Diffuse increased interstitial lung markings. Small nodular density in the left suprahilar region. Right hilar prominence. Patchy linear areas of atelectasis at the left lung base and right costophrenic angle. Enlarged ectatic aorta with calcification and plaque. Cardiomegaly. Degenerati ve changes in the spine and shoulders. Medical Decision Making Medical Decision Making: Plan: Blood Bank Type and Screen EKG CMP Hematology CXR Protonix 40mg IVP NaCl IV Fluids Zofran 4mg IVP Urinalysis Patient accepted by Dr. Harp to telemetry. Disposition Discussed With Dr.: Nancy Harp Doctor Will See Patient In The: Hospital Counseled Patient/Family Regarding: Studies Performed, Diagnosis - Disposition Disposition: HOSPITALIZED Disposition Time: 14:08 Condition: GUARDED Forms: Miscota (Guinean) - Clinical Impression Clinical Impression: Gastrointestinal hemorrhage, ESRD on dialysis, Rapid atrial fibrillation - Scribe Statement The provider has reviewed the documentation as recorded by the Scribe (Yobani Longoria) Provider Attestation: All medical record entries made by the Scribe were at my direction and personally dictated by me. I have reviewed the chart and agree that the record accurately reflects my personal performance of the history, physical exam, medical decision making, and the department course for this patient. I have also personally directed, reviewed, and agree with the discharge instructions and disposition.
[2018-11-27 12:29] LABS: BASO % 0.3 % (0.0-2.0); EOS % 0.1 % (0.0-4.0); HEMOGLOBIN 16.3 g/dL (11.0-16.0); LYMPH # 0.3 K/uL (1.0-4.3); LYMPH % 2.4 % (20.0-40.0); MEAN CELL VOLUME 102.4 fL (81.0-99.0); MEAN CORPUSCULAR HEMOGLOBIN 33.5 pg (27.0-31.0); MEAN CORPUSCULAR HGB CONC 32.7 g/dL (33.0-37.0); MONO # 0.4 K/uL (0.0-0.8); MONO % 3.4 % (0.0-10.0); NEUT # 12.1 K/uL (1.8-7.0); NEUT % 93.8 % (50.0-75.0); NRBC % 0.3 % (0.0-2.0); PLATELET COUNT 187 K/uL (130-400); RBC 4.86 Mil/uL (3.80-5.20); RED CELL DISTRIBUTION WIDTH 17.1 % (11.5-14.5); WHITE BLOOD COUNT 12.9 K/uL (4.8-10.8)
[2018-11-27 12:38] LABS: INR 1.2
--- NOTE | 2018-11-27 12:47 | RAD ---
Chest x-ray single frontal view HISTORY: GI bleeding. Comparison: 06/21/2017 Findings: Surgical clips project over the lateral aspect of the right upper lung zone. Diffuse increased interstitial lung markings. Small nodular density in the left suprahilar region Right hilar prominence. Patchy linear areas of atelectasis at the left lung base and right costophrenic angle. Enlarged ectatic aorta with calcification and plaque. Cardiomegaly. Degenerative changes in the spine and shoulders. Impression: Surgical clips project over the lateral aspect of the right upper lung zone. Diffuse increased interstitial lung markings. Small nodular density in the left suprahilar region Right hilar prominence. Patchy linear areas of atelectasis at the left lung base and right costophrenic angle. Enlarged ectatic aorta with calcification and plaque. Cardiomegaly. Degenerative changes in the spine and shoulders.
[2018-11-27 12:55] LABS: ALB/GLOB RATIO 1.2 (1.0-2.1); ALBUMIN 4.1 g/dL (3.5-5.0); CALCIUM 10.4 mg/dl (8.6-10.4)
[2018-11-27 13:03] LABS: ANISOCYTOSIS SLIGHT; BANDS 9 % (0-2); LYMPHOCYTE 9 % (20-40); MONOCYTE 4 % (0-10); NEUTROPHIL 76 % (50-75); PLATELET ESTIMATE NORMAL (NORMAL); POIKILOCYTOSIS SLIGHT; REACTIVE LYMPHOCYTES 2 % (0-0); TOTAL CELLS COUNTED 100
[2018-11-27 13:04] LABS: HYPOCHROMIC SLIGHT; OVALOCYTES SLIGHT; POLYCHROMIC SLIGHT
[2018-11-27 14:43] LABS: TROPONIN I 0.067 ng/mL (0.00-0.120)
[2018-11-27] MEDS ORDERED: Sodium Chloride 0.9% 1,000 ML IV SCH ×2 (15:30→18:00)
--- NOTE | 2018-11-27 15:45 | CP.PCM.HP ---
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 Pt was given her HD yesterday and began to feel abdominal pain soon after. Pt then had the dark emesisof about 1 cup full at home witnessed by daughters. Pt was immediately brought in to [facility] ED. Pt was found to have high HR of 180s and felt palps. Pt was given Cardizem and rate improved to 120s. As per daughter, Pt is non compliant with most of her home Rx. Pt has been losing weight over the last 2 years, and apetite has dropped significantly. 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, ESRD HD [facility]Th[facility] PSx: AAA dis 2015, colonoscopy 2017 FH: denies SocHx: denies drug alc smoke Home Rx Bisoprolol 5 BID Hydralizine 25 TID Amlodipine 5 QD Renvela 800 TID Present on Admission - Present on Admission Any Indicators Present on Admission: No Review of Systems - Review of Systems All systems: reviewed and no additional remarkable complaints except (as per HP I) Past Patient History - Infectious Disease Hx of Infectious Diseases: None - Past Medical History & Family History Past Medical History?: Yes - Past Social History Smoking Status: Never Smoked - CARDIAC Hx Congestive Heart Failure: Yes Hx Hypertension: Yes Hx Pacemaker: No - PULMONARY Hx Chronic Obstructive Pulmonary Disease (COPD): Yes - NEUROLOGICAL Hx Alzheimer's Disease: Yes Hx Dementia: Yes - HEENT Hx HEENT Problems: Yes Hx Cataracts: Yes - RENAL Hx Chronic Kidney Disease: Yes Hx Kidney Stones: No - ENDOCRINE/METABOLIC Hx Endocrine Disorders: No - HEMATOLOGICAL/ONCOLOGICAL Hx Anemia: Yes - INTEGUMENTARY Hx Dermatological Problems: No - MUSCULOSKELETAL/RHEUMATOLOGICAL Hx Fractures: Yes (pelvis) - GASTROINTESTINAL Hx Gastrointestinal Disorders: No - GENITOURINARY/GYNECOLOGICAL Hx Genitourinary Disorders: No - PSYCHIATRIC Hx Anxiety: Yes Hx Depression: Yes Hx Substance Use: No - SURGICAL HISTORY Hx Appendectomy: No Hx Coronary Artery Bypass Graft: Yes (2011) - ANESTHESIA Hx Anesthesia: Yes Hx Anesthesia Reactions: No Meds Allergies/Adverse Reactions: Allergies Allergy/AdvReac Type Severity Reaction Status Date / Time aspirin Allergy Mild RASH Verified 11/27/18 11:37 Penicillins Allergy Verified 11/27/18 11:37 Physical Exam - Constitutional Appears: Non-toxic, No Acute Distress, Cachectic, Chronically Ill - Head Exam Head Exam: ATRAUMATIC, NORMAL INSPECTION, NORMOCEPHALIC - Eye Exam Eye Exam: EOMI, Normal appearance, Scleral icterus Pupil Exam: Fixed, Miosis - ENT Exam ENT Exam: Mucous Membranes Dry. absent: Normal Oropharynx (dark brown rememnants on teeth from emesis) Results - Vital Signs Recent Vital Signs: Last Vital Signs Temp 97.7 F 11/27/18 15:11 Pulse 99 H 11/27/18 15:11 Resp 20 11/27/18 15:11 BP 154/82 H 11/27/18 15:11 Pulse Ox 98 11/27/18 15:11 - Labs Result Diagrams: 11/27/18 12:23 11/27/18 12:23 Labs: Laboratory Results - last 24 hr 11/27/18 11/27/18 11/27/18 12:23 12:23 12:23 WBC 12.9 H D RBC 4.86 Hgb 16.3 H D Hct 49.8 H MCV 102.4 H MCH 33.5 H MCHC 32.7 L RDW 17.1 H Plt Count 187 MPV 10.0 Neut % (Auto) 93.8 H Lymph % (Auto) 2.4 L [place] % (Auto) 3.4 Eos % (Auto) 0.1 Baso % (Auto) 0.3 Neut # (Auto) 12.1 H Lymph # (Auto) 0.3 L [place] # (Auto) 0.4 Eos # (Auto) 0.0 Baso # (Auto) 0.0 Neutrophils % (Manual) 76 H Band Neutrophils % 9 H Lymphocytes % (Manual) 9 L Reactive Lymphs % 2 H Monocytes % (Manual) 4 Platelet Estimate Normal Polychromasia Slight Hypochromasia (manual) Slight Poikilocytosis (manual Slight Anisocytosis (manual) Slight Macrocytosis (manual) Slight Ovalocytes Slight PT 13.0 H INR 1.2 APTT 45 H Sodium 137 Potassium 3.8 Chloride 90 L Carbon Dioxide 29 Anion Gap 22 H BUN 36 H Creatinine 2.8 H Est GFR ( Amer) 20 Est GFR (Non-Af Amer) 16 Random Glucose 102 Calcium 10.4 Total Bilirubin 3.4 H AST 67 H D ALT 8 L D Alkaline Phosphatase 207 H D Troponin I 0.0670 Total Protein 7.4 Albumin 4.1 Globulin 3.3 Albumin/Globulin Ratio 1.2 Blood Type Antibody Screen 11/27/18 13:03 WBC RBC Hgb Hct MCV MCH MCHC RDW Plt Count MPV Neut % (Auto) Lymph % (Auto) [place] % (Auto) Eos % (Auto) Baso % (Auto) Neut # (Auto) Lymph # (Auto) [place] # (Auto) Eos # (Auto) Baso # (Auto) Neutrophils % (Manual) Band Neutrophils % Lymphocytes % (Manual) Reactive Lymphs % Monocytes % (Manual) Platelet Estimate Polychromasia Hypochromasia (manual) Poikilocytosis (manual Anisocytosis (manual) Macrocytosis (manual) Ovalocytes PT INR APTT Sodium Potassium Chloride Carbon Dioxide Anion Gap BUN Creatinine Est GFR ( Amer) Est GFR (Non-Af Amer) Random Glucose Calcium Total Bilirubin AST ALT Alkaline Phosphatase Troponin I Total Protein Albumin Globulin Albumin/Globulin Ratio Blood Type O POSITIVE Antibody Screen Negative Assessment & Plan - Assessment and Plan (Free Text) Assessment: 82F admitted for AFib RVR, coffee ground emesis Plan: Afib w/ RVR HR in 160s->90s after meds SBP in 180s->120s after meds Cardizem 5 then 10 IVP given in ED Bisoprolol 5 BID started this PM restart home meds after EGD in AM Monitor Vitals q4 Holding Eliquis Hydralizine and Amlodipine NS @ 50 Dr Mario Cardio consulted f/u recs Coffee Ground Emesis H&H high- likely hemoconcentrated f/u CT chest abd pelv Dr Crane GI Consulted COAGs ok for upper EGD in AM hold Eliquis NPO past midnight repeat cbc, f/u ESRD CMP reviewed by team and over phone w/ Nephrivka Hannal on HD T Sat Renvela [address] Latesha Dunaway consulted, f/u recs HD tmrw PM after EGD f/u AM Labs Monitor I&Os NS @ 50 PPx Hold anticoag for EGD PTX 40 IVP qd scd's <Stanford Donohue H - Last Filed: 11/27/18 19:03> Results - Vital Signs Recent Vital Signs: Last Vital Signs Temp 97.6 F 11/27/18 15:45 Pulse 103 H 11/27/18 15:45 Resp 18 11/27/18 15:45 BP 171/84 H 11/27/18 15:45 Pulse Ox 99 11/27/18 15:45 - Labs Result Diagrams: 11/27/18 12:23 11/27/18 12:23 Labs: Laboratory Results - last 24 hr 11/27/18 11/27/18 11/27/18 12:23 12:23 12:23 WBC 12.9 H D RBC 4.86 Hgb 16.3 H D Hct 49.8 H MCV 102.4 H MCH 33.5 H MCHC 32.7 L RDW 17.1 H Plt Count 187 MPV 10.0 Neut % (Auto) 93.8 H Lymph % (Auto) 2.4 L [place] % (Auto) 3.4 Eos % (Auto) 0.1 Baso % (Auto) 0.3 Neut # (Auto) 12.1 H Lymph # (Auto) 0.3 L [place] # (Auto) 0.4 Eos # (Auto) 0.0 Baso # (Auto) 0.0 Neutrophils % (Manual) 76 H Band Neutrophils % 9 H Lymphocytes % (Manual) 9 L Reactive Lymphs % 2 H Monocytes % (Manual) 4 Platelet Estimate Normal Polychromasia Slight Hypochromasia (manual) Slight Poikilocytosis (manual Slight Anisocytosis (manual) Slight Macrocytosis (manual) Slight Ovalocytes Slight PT 13.0 H INR 1.2 APTT 45 H Puncture Site pCO2 pO2 HCO3 ABG pH ABG Total CO2 ABG O2 Saturation ABG Base Excess Jabari Test ABG Potassium Glucose Lactate Liter Flow Crit Value Called To Crit Value Called By Crit Value Read Back Blood Gas Notified Time Sodium 137 Potassium 3.8 Chloride 90 L Carbon Dioxide 29 Anion Gap 22 H BUN 36 H Creatinine 2.8 H Est GFR ( Amer) 20 Est GFR (Non-Af Amer) 16 Random Glucose 102 Calcium 10.4 Total Bilirubin 3.4 H AST 67 H D ALT 8 L D Alkaline Phosphatase 207 H D Troponin I 0.0670 Total Protein 7.4 Albumin 4.1 Globulin 3.3 Albumin/Globulin Ratio 1.2 Arterial Blood Potassium Blood Type Antibody Screen 11/27/18 11/27/18 13:03 18:23 WBC RBC Hgb Hct MCV MCH MCHC RDW Plt Count MPV Neut % (Auto) Lymph % (Auto) [place] % (Auto) Eos % (Auto) Baso % (Auto) Neut # (Auto) Lymph # (Auto) [place] # (Auto) Eos # (Auto) Baso # (Auto) Neutrophils % (Manual) Band Neutrophils % Lymphocytes % (Manual) Reactive Lymphs % Monocytes % (Manual) Platelet Estimate Polychromasia Hypochromasia (manual) Poikilocytosis (manual Anisocytosis (manual) Macrocytosis (manual) Ovalocytes PT INR APTT Puncture Site Rba pCO2 37 pO2 128 H HCO3 26.4 ABG pH 7.45 ABG Total CO2 26.8 ABG O2 Saturation 99.8 H ABG Base Excess 1.8 Jabari Test Na ABG Potassium 3.4 L Glucose 95 Lactate 8.1 H* Liter Flow 3.0 Crit Value Called To Mauricio davis Crit Value Called By Yonathan Crit Value Read Back Y Blood Gas Notified Time 182 Sodium 137.0 Potassium Chloride 97.0 L Carbon Dioxide Anion Gap BUN Creatinine Est GFR ( Amer) Est GFR (Non-Af Amer) Random Glucose Calcium Total Bilirubin AST ALT Alkaline Phosphatase Troponin I Total Protein Albumin Globulin Albumin/Globulin Ratio Arterial Blood Potassium 3.4 L Blood Type O POSITIVE Antibody Screen Negative Attending/Attestation - Attestation I have personally seen and examined this patient.: Yes I have fully participated in the care of the patient.: Yes I have reviewed all pertinent clinical information: Yes Notes (Text): 11/27/18 18:45 Medical attending: Patient was seen and examined by me in the ER with the medical residents as well as with family members at bedside. We later returned and spoke and examined the patient again with additional family members at bedside as well as spoke with others over speaker phone Because of her vague abdominal pain as well as the dark brown material found in her mouth on exam we ordered a CT of the chest/abdomen/pelvis I was shortly thereafter notified by radiology that the patient's CT scan unfortunately shows extensive acute ischemia of the bowel as well as changes due to this ischemia that is seen. The patient is not in pain at rest however on exam she does have tenderness at with palpation. The patient has reportedly by family been loosing weight over the past 5 years and recently the appetite has been very decreased. Surgery team was notified and they came and spoke with family and because the areas of ischemia are so extensive (affecting both the small and large bowl and also areas of the stomach), and condiering the patient's frail nature, it would not be possible to do surgery I jennifer out on a piece of paper to explain to one of the daughters what the acute ischemia of the bowels meant. It was a very simple diagram however it helped them understand The patient, we told her about the poor prognosis and the patient does NOT want to be intubated and does NOT want to have CPR. So we will change the code status to DNR and DNI The first ABG came back and the pH was not too bad however she has very high lactic levels of 8 Family has been made aware there may not be much time left and they are aware of poor prognosis For now we are ordering D5 with amps of bicarb, IV heparin ggt, NPO, and also morphine IV for pain - however given the already serious ABG values that we may not have much time left Family is very well aware Palliative care consult pending Patient is already DNR and DNI at this time thank you Stanford Donohue
[2018-11-27] MEDS ORDERED: Vancomycin 1 gm/NS 200 ml 1 GM/200 ML BAG IVPB ONE (16:15)
--- NOTE | 2018-11-27 18:08 | CP.PCM.CON ---
History of Present Illness - History of Present Illness History of Present Illness: General Surgery Dr. 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 Per family present @bedside, pt underwent HD yesterday and began to feel abd pain soon after. Pt had dark brown/black emesis, witnessed by daughters, which prompted the trip to the ED for eval. In the ED, pt found to be in Afib w/ RVR w/ HR in 180s. Pt was given meds for rate control which improved HR to 120s. Per daughter, pt is noncomplicant w/ most of her meds. Family reports significant weight loss over last 2yrs w/ significant decrease in appetite. CT C/A/P was ordered and completed which revealed pneumobilia and significant pneumatosis intestinalis in stomach, small bowel, and colon. Surgery was consult for Ischemic Bowel. (+) hematemesis x1 (-) CP, SOB, F/C, abd pain, nausea, melena/hematochezia, hematuria, PMHx: see above Meds reviewed in chart ALL: ASA, PCN PSHx: TAA endovascular repair, Raxo-bifem bypass, L AVF, colonoscopy SHx: denies tobacco, EtOH, drug use FHx: noncontributory Past Patient History - Infectious Disease Hx of Infectious Diseases: None - Past Medical History & Family History Past Medical History?: Yes - Past Social History Smoking Status: Never Smoked - CARDIAC Hx Congestive Heart Failure: Yes Hx Hypertension: Yes Hx Pacemaker: No - PULMONARY Hx Chronic Obstructive Pulmonary Disease (COPD): Yes - NEUROLOGICAL Hx Alzheimer's Disease: Yes Hx Dementia: Yes - HEENT Hx HEENT Problems: Yes Hx Cataracts: Yes - RENAL Hx Chronic Kidney Disease: Yes Hx Kidney Stones: No - ENDOCRINE/METABOLIC Hx Endocrine Disorders: No - HEMATOLOGICAL/ONCOLOGICAL Hx Anemia: Yes - INTEGUMENTARY Hx Dermatological Problems: No - MUSCULOSKELETAL/RHEUMATOLOGICAL Hx Fractures: Yes (pelvis) - GASTROINTESTINAL Hx Gastrointestinal Disorders: No - GENITOURINARY/GYNECOLOGICAL Hx Genitourinary Disorders: No - PSYCHIATRIC Hx Anxiety: Yes Hx Depression: Yes Hx Substance Use: No - SURGICAL HISTORY Hx Appendectomy: No Hx Coronary Artery Bypass Graft: Yes (2011) - ANESTHESIA Hx Anesthesia: Yes Hx Anesthesia Reactions: No Meds Allergies/Adverse Reactions: Allergies Allergy/AdvReac Type Severity Reaction Status Date / Time aspirin Allergy Mild RASH Verified 11/27/18 11:37 Penicillins Allergy Verified 11/27/18 11:37 - Medications Medications: Current Medications Bisoprolol Fumarate (Zebeta) 5 mg PO DAILY [facility] Last Admin: 11/27/18 15:12 Dose: 5 mg Hydralazine HCl (Apresoline) 25 mg PO TID [facility] Aztreonam 2 gm/ Sodium (Chloride) 100 mls @ 200 mls/hr IVPB Q8H [facility]; Protocol Sodium Chloride (Sodium Chloride 0.9%) 1,000 mls @ 70 mls/hr IV .[id number] [facility] Sevelamer Carbonate (Renvela) 800 mg PO TIDCC [facility] Results - Vital Signs Recent Vital Signs: Last Vital Signs Temp 97.6 F 11/27/18 15:45 Pulse 103 H 11/27/18 15:45 Resp 18 11/27/18 15:45 BP 171/84 H 11/27/18 15:45 Pulse Ox 99 11/27/18 15:45 - Labs Result Diagrams: 11/27/18 12:23 11/27/18 12:23 Labs: Laboratory Results - last 24 hr 11/27/18 11/27/18 11/27/18 12:23 12:23 12:23 WBC 12.9 H D RBC 4.86 Hgb 16.3 H D Hct 49.8 H MCV 102.4 H MCH 33.5 H MCHC 32.7 L RDW 17.1 H Plt Count 187 MPV 10.0 Neut % (Auto) 93.8 H Lymph % (Auto) 2.4 L [place] % (Auto) 3.4 Eos % (Auto) 0.1 Baso % (Auto) 0.3 Neut # (Auto) 12.1 H Lymph # (Auto) 0.3 L [place] # (Auto) 0.4 Eos # (Auto) 0.0 Baso # (Auto) 0.0 Neutrophils % (Manual) 76 H Band Neutrophils % 9 H Lymphocytes % (Manual) 9 L Reactive Lymphs % 2 H Monocytes % (Manual) 4 Platelet Estimate Normal Polychromasia Slight Hypochromasia (manual) Slight Poikilocytosis (manual Slight Anisocytosis (manual) Slight Macrocytosis (manual) Slight Ovalocytes Slight PT 13.0 H INR 1.2 APTT 45 H Sodium 137 Potassium 3.8 Chloride 90 L Carbon Dioxide 29 Anion Gap 22 H BUN 36 H Creatinine 2.8 H Est GFR ( Amer) 20 Est GFR (Non-Af Amer) 16 Random Glucose 102 Calcium 10.4 Total Bilirubin 3.4 H AST 67 H D ALT 8 L D Alkaline Phosphatase 207 H D Troponin I 0.0670 Total Protein 7.4 Albumin 4.1 Globulin 3.3 Albumin/Globulin Ratio 1.2 Blood Type Antibody Screen 11/27/18 13:03 WBC RBC Hgb Hct MCV MCH MCHC RDW Plt Count MPV Neut % (Auto) Lymph % (Auto) [place] % (Auto) Eos % (Auto) Baso % (Auto) Neut # (Auto) Lymph # (Auto) [place] # (Auto) Eos # (Auto) Baso # (Auto) Neutrophils % (Manual) Band Neutrophils % Lymphocytes % (Manual) Reactive Lymphs % Monocytes % (Manual) Platelet Estimate Polychromasia Hypochromasia (manual) Poikilocytosis (manual Anisocytosis (manual) Macrocytosis (manual) Ovalocytes PT INR APTT Sodium Potassium Chloride Carbon Dioxide Anion Gap BUN Creatinine Est GFR ( Amer) Est GFR (Non-Af Amer) Random Glucose Calcium Total Bilirubin AST ALT Alkaline Phosphatase Troponin I Total Protein Albumin Globulin Albumin/Globulin Ratio Blood Type O POSITIVE Antibody Screen Negative Assessment & Plan - Assessment and Plan (Free Text) Assessment: 82 y/o F w/ extensive ischemic bowel likely 2/2 to chronic low flow state Plan: - NPO/IVF - heparin gtt - IV abx - pain management - considering extent of ischemia seen on CT A/P, pt unlikely to benefit from surgery - recommend comfort care/medical management - f/u Palliative care consult Pt discussed w/ Dr. Andrea Han DO PGY3
--- NOTE | 2018-11-27 18:24 | CT ---
CT chest abdomen and pelvis HISTORY: Coffee-ground emesis. COMPARISON: None available. Technique: Multiple contiguous axial images were performed through the chest, abdomen, and pelvis without the use of intravenous contrast. Subsequently, sagittal and coronal reformatted images were obtained. This CT exam was performed using one or more of the following dose reduction techniques: Automated exposure control, adjustment of the mA and/or kV according to patient size, and/or use of iterative reconstruction technique. Findings: Right lung: Apical pleural thickening. Scattered atelectasis at the right lung base. Left lung: Apical pleural thickening. Small left pleural effusion. Dense consolidative changes and atelectasis at the left lung base. Trachea thru central airways are patent. Prominent hiatal hernia. Fluid-filled and distended esophagus with air and fluid. No significant axillary adenopathy. Heterogeneity of the thyroid. No significant mediastinal or hilar adenopathy. Cardiomegaly. Extensive coronary calcifications. Aneurysmal dilatation of the ascending aorta measuring 3.6 centimeters. A right axillary arterial vascular bypass graft is tunneled along the subcutaneous soft tissues of the right thorax and abdomen to the right common femoral artery with left common femoral bypass graft also noted. Extensive atherosclerotic vascular plaquing throughout the aortic arch and descending thoracic aorta. Aneurysmal dilatation is seen in the lower descending thoracic aorta measuring up to 4.2 centimeters. Dense circumferential and encapsulated calcification throughout the aorta extending from the aortic arch inferiorly throughout the thoracic and abdominal aorta. At the level of the mid abdominal aorta, there is complete /near complete occlusion of the mid abdominal aorta. Degenerative changes in the spine. Extensive portal venous gas seen throughout the liver consistent with bowel ischemic changes. 4 millimeter calcification in the right hepatic lobe. Hepatomegaly. Distended gallbladder. Spleen is preserved. Nodular thickening of the adrenal glands. Pancreas is preserved. Moderate hiatal hernia. Fluid-filled stomach. Extensive pneumatosis seen throughout the visualized small bowel as well as throughout the right hemicolon suggestive for extensive bowel ischemia. Air-filled collateral vessels extending to the portal vein where there is portal venous gas in the liver. There is a suggestion of possible punctate foci of free intraperitoneal air throughout the abdomen. Clinical correlation. Atrophic right kidney. Atrophic left kidney. Urinary bladder grossly preserved. Pelvic ascites. Underdistended and or thickened left hemicolon. Appendix within normal limits. Again identified is complete/near complete occlusion of the mid abdominal aorta. Given the lack of contrast, evaluation of the collateral vessels is markedly limited. Correlation with a CT angiogram of the abdomen would be helpful to better evaluate the branch and take off vessels. Additional vascular bypass graft seen within the anterior pelvis. Dense atherosclerotic calcification and plaque within iliac vessels. Degenerative changes in spine. Chronic fracture deformities of inferior pubic bones. Impression: 1. Extensive pneumatosis seen throughout the visualized small bowel as well as throughout the right hemicolon suggestive for extensive bowel ischemia / infarction. Air-filled collateral vessels extending to the portal vein where there is portal venous gas in the liver. Clinical correlation. Correlation with surgical consult is recommended. 2. Suggestion of possible punctate foci of free intraperitoneal air throughout the abdomen. Clinical correlation. 3. Dense circumferential and encapsulated calcification throughout the aorta extending from the aortic arch inferiorly throughout the thoracic and abdominal aorta. At the level of the mid abdominal aorta, there is complete /near complete occlusion of the mid abdominal aorta. Given the lack of contrast, evaluation of the collateral vessels is markedly limited. Correlation with a CT angiogram of the abdomen would be helpful to better evaluate the branch and take off vessels. Additional vascular bypass graft seen within the anterior pelvis. Dense atherosclerotic calcification and plaque within iliac vessels. 4. Pelvic ascites. 5. Prominent hiatal hernia. Fluid-filled and distended esophagus with air and fluid. 6. Small left pleural effusion. Dense consolidative changes and atelectasis at the left lung base. These findings were discussed with Dr. Stanford Donohue at 5:11 p.m. on 11/27/2018.
[2018-11-27 18:26] LABS: ARTERIAL BLOOD GAS HCO3 26.4 mmol/L (21-28); ARTERIAL BLOOD GAS O2 SAT 99.8 % (95-98); ARTERIAL BLOOD GAS PCO2 37 mm/Hg (35-45); ARTERIAL BLOOD GAS PH 7.45 (7.35-7.45); ARTERIAL BLOOD GAS PO2 128 mm/Hg (80-100); ARTERIAL BLOOD GAS TCO2 26.8 mmol/L (22-28)
[2018-11-27] MEDS ORDERED: Aztreonam 2 GM in Sodium Chloride 0.9% 100 ML IVPB ONE (19:30)
[2018-11-27] MEDS ORDERED: Heparin25000 units/250ml 1/2NS 25,000 UNITS/250 ML BAG IV PRN (19:30)
[2018-11-27] MEDS: Sodium Bicarbonate 8.4% 150 MEQ in Dextrose 5% In Water 850 ML IV SCH (21:39)
[2018-11-27 22:35] LABS: ARTERIAL BLOOD GAS HCO3 28.6 mmol/L (21-28); ARTERIAL BLOOD GAS O2 SAT 99.5 % (95-98); ARTERIAL BLOOD GAS PCO2 38 mm/Hg (35-45); ARTERIAL BLOOD GAS PH 7.48 (7.35-7.45); ARTERIAL BLOOD GAS PO2 113 mm/Hg (80-100); ARTERIAL BLOOD GAS TCO2 29.5 mmol/L (22-28)
[2018-11-28] MEDS ORDERED: Aztreonam 1 GM in Sodium Chloride 0.9% 100 ML IVPB SCH (03:30)
[2018-11-28] MEDS: Sodium Bicarbonate 8.4% 150 MEQ in Dextrose 5% In Water 850 ML IV SCH (05:30)
--- NOTE | 2018-11-28 06:03 | CON ---
DATE: 11/27/2018 CARDIOLOGY CONSULTATION The history was obtained from the patient's daughter who was at the bedside; however, she is not the one who lives with the patient, and she conveyed the history that she knew from her sister. HISTORY OF PRESENT ILLNESS: The patient is an 82-year-old female who has history of end-stage renal disease, on hemodialysis for many years. She has history of atrial fibrillation, on Eliquis and history of dementia. The patient was admitted because of upper GI bleeding. The patient does not give any reliable answers to the questions either from me or from her daughter and the medical history was obtained on the observations conveyed to us from her daughter who lives with the patient. I did evaluate the patient on a consult in 2014 because of multiple falls and reported pelvic fracture at that time. SOCIAL HISTORY: Nonsmoker, nondrinker. Lives with her daughter. PAST MEDICAL HISTORY: End-stage renal disease, on hemodialysis. The patient has been demented for many years. The patient has history of falls with pelvic fracture. MEDICATIONS: Hydralazine 25 mg t.i.d., Azactam 2 g intravenous every 8 hours, Renvela one tablet t.i.d., vancomycin 1 g intravenously given as a single dose, Zebeta 5 mg orally daily. REVIEW OF SYSTEMS: No reported seizures. No recent fall according to the daughter. PHYSICAL EXAMINATION: GENERAL: The patient is elderly female who does not appear to be in respiratory distress. VITAL SIGNS: Blood pressure 171/84, heart rate 103, temperature 97.6, respirations 18. HEENT: Normocephalic. CHEST: Bibasilar rhonchi. HEART: S1, S2 regular. ABDOMEN: Diminished bowel sounds. EXTREMITIES: Significant muscle wasting. LABORATORY DATA: SMA-7: Sodium , potassium 3.8, chloride 90, CO2 of 29, glucose 102, BUN 36, creatinine 2.8. One set of troponin 0.067. PTT 45, INR is 1.2. Hemoglobin and hematocrit 16.3 and 49.8. White count 12.9, platelet count 187,000. EKG revealed atrial fibrillation at rate of 148. PVCs versus aberrancy, ST-T wave changes. Consider inferolateral ischemia. The most recent echo was in 04/2017 which revealed normal ventricular size and systolic function with grade 2 pseudonormal filling dynamics. Mild to moderate aortic insufficiency, and estimated right ventricular pressure of 40 to 50 mmHg. Chest x-ray revealed a borderline cardiomegaly. No infiltrate or effusion. Chest, abdomen, and pelvic CT scans were performed. No official report is available, however, it was conveyed to me by the medical research associate that there is possibility for intestinal perforation with free air in the abdomen and possible ischemic bowel disease. ASSESSMENT: 1. Acute surgical abdomen. 2. Rapid atrial fibrillation. 3. Inferolateral ischemia. Rule out non-ST elevation myocardial infarction. 4. End-stage renal disease, on hemodialysis. 5. Dementia. RECOMMENDATIONS: Transfer the patient to the ICU. Continue correct intravenous antibiotics. Keep the patient n.p.o. even for medications. The patient is a high risk surgical candidate. However, the surgical decision should rely only on the family's acceptance of high risk surgery as well as the surgical date, decision about the urgency of surgical intervention. Given the acuity of the situation that does not allow for any further cardiac preoperative evaluation. The case was discussed with the medical team. Say Mario MD
[2018-11-28 06:41] LABS: NEUT # 12.5 K/uL (1.8-7.0)
[2018-11-28 06:45] LABS: BASO % 0.2 % (0.0-2.0); LYMPH # 0.8 K/uL (1.0-4.3); LYMPH % 5.5 % (20.0-40.0); MEAN CELL VOLUME 102.8 fL (81.0-99.0); MEAN CORPUSCULAR HGB CONC 32.1 g/dL (33.0-37.0); MEAN PLATELET VOLUME 10.5 fL (7.2-11.7); MONO # 0.7 K/uL (0.0-0.8); MONO % 4.7 % (0.0-10.0); NEUT % 89.6 % (50.0-75.0); NRBC % 1.2 % (0.0-2.0); PLATELET COUNT 152 K/uL (130-400); RBC 4.09 Mil/uL (3.80-5.20); RED CELL DISTRIBUTION WIDTH 17.5 % (11.5-14.5)
[2018-11-28 06:49] LABS: INR 1.7
[2018-11-28 06:53] LABS: HEMOGLOBIN 13.5 g/dL (11.0-16.0)
[2018-11-28 07:06] LABS: ALB/GLOB RATIO 1.3 (1.0-2.1); ALBUMIN 3.3 g/dL (3.5-5.0); CALCIUM 9.1 mg/dl (8.6-10.4)
[2018-11-28 08:37] VITALS: BP 90/52; RESP 18; TEMP 97.9; O2SAT 94
[2018-11-28] MEDS ORDERED: Heparin25000 units/250ml 1/2NS 25,000 UNITS/250 ML BAG IV PRN (08:45)
[2018-11-28 08:49] LABS: ANISOCYTOSIS SLIGHT; BANDS 42 % (0-2); BASOPHIL 1 % (0-2); LYMPHOCYTE 13 % (20-40); MONOCYTE 6 % (0-10); MYELOCYTE 1 % (0-0); NEUTROPHIL 37 % (50-75); NUCLEATED RED BLOOD CELL 2 % (0-0); PLATELET ESTIMATE NORMAL (NORMAL); POIKILOCYTOSIS SLIGHT; TOTAL CELLS COUNTED 100
[2018-11-28 08:50] LABS: BURR CELLS SLIGHT; LARGE PLATELETS PRESENT; POLYCHROMIC SLIGHT
[2018-11-28 08:52] LABS: OVALOCYTES SLIGHT
--- NOTE | 2018-11-28 08:59 | CP.PCM.PN ---
Subjective - Date & Time of Evaluation Date of Evaluation: 11/28/18 Time of Evaluation: 08:59 - Subjective Subjective: HOSPITALIST SERVICE Pt s/e at bedside with family present, complains of back pain today, hungry and would also like to drink something. Pt does not complain of any abdominal pain despite CT findings. Pt did not sleep well last night as per family. denies CP SOB FC NV, pt is also agreeable to seeing palliative care Objective - Vital Signs/Intake and Output Vital Signs (last 24 hours): Temp Pulse Resp BP Pulse Ox 97.9 F 82 18 90/52 L 94 L 11/28/18 07:00 11/28/18 07:00 11/28/18 07:00 11/28/18 07:00 11/28/18 07:00 - Medications Medications: Current Medications Bisoprolol Fumarate (Zebeta) 5 mg PO DAILY [facility] Last Admin: 11/27/18 15:12 Dose: 5 mg Hydralazine HCl (Apresoline) 25 mg PO TID [facility] Aztreonam 1 gm/ Sodium (Chloride) 100 mls @ 100 mls/hr IVPB Q8H [facility] Last Admin: 11/28/18 03:00 Dose: 100 mls/hr Heparin Sodium/Sodium Chloride (Heparin 76799 Units/250ml 1/2 Normal Saline) 25,000 units in 250 mls @ 2.921 mls/hr IV .Q24H PRN; Protocol PRN Reason: PROTOCOL Sodium Bicarbonate 50 meq/ (Dextrose) 900 mls @ 100 mls/hr IV .Q9H [facility] Morphine Sulfate (Morphine) 2 mg IVP Q3 PRN PRN Reason: Pain, moderate (4-7) Last Admin: 11/28/18 03:21 Dose: 2 mg Sevelamer Carbonate (Renvela) 800 mg PO TIDCC [facility] Last Admin: 11/27/18 19:07 Dose: 800 mg - Labs Labs: 11/28/18 06:37 11/28/18 06:37 PT 19.0 SECONDS (9.7-12.2) H D 11/28/18 06:37 INR 1.7 D 11/28/18 06:37 APTT 108 SECONDS (21-34) H* D 11/28/18 06:37 Assessment and Plan - Assessment and Plan (Free Text) Assessment: Mesenteric Ischemia -GenSx consulted Dr Sebastian Mendez: f/u recs abd firm painful on deep palp of lower quadrants. spoke w/ GenSx, unlikely candidate for sx at this time spoke w/ Cardio: high risk for anesthesia IV Azactam 1 IV Vanco stat dose serial ABGs show elevated lactate Heparin Drip @ 10, Morphine 2mg IVP q3 PRN IVF of D5 w/ 1 amp of BICARB @ 100 poor prognosis, pt to speak to palliative care today Afib w/ RVR HR in 160s->90s after meds SBP in 180s->120s after meds Cardizem 5 then 10 IVP given in ED Bisoprolol 5 BID started this PM restart home meds after EGD in AM Monitor Vitals q4 Holding Eliquis Hydralizine and Amlodipine NS @ 50 Dr Mario Cardio consulted f/u recs Coffee Ground Emesis H&H high- likely hemoconcentrated f/u CT chest abd pelv Dr Crane GI Consulted COAGs ok for upper EGD in AM hold Eliquis NPO past midnight repeat cbc, f/u ESRD CMP reviewed by team and over phone w/ Nephrivka Tobar on HD T Sat Renvela [address] Charlton Nephrivka consulted, f/u recs HD tmrw PM after EGD f/u AM Labs Monitor I&Os NS @ 50 PPx Hold anticoag for EGD PTX 40 IVP qd scd's
[2018-11-28] MEDS ORDERED: Sodium Bicarbonate 8.4% 50 MEQ in Dextrose 5% In Water 1,000 ML IV SCH (10:00)
[2018-11-28] MEDS ORDERED: DEXTROSE 5% IV SCH (10:00)
[2018-11-28] MEDS ORDERED: SODIUM BICARBONATE IV SCH (10:00)
[2018-11-28] MEDS ORDERED: WATER IV SCH (10:00)
--- NOTE | 2018-11-28 13:35 | CP.PCM.PRO ---
Pronouncement of Note - Clinical Findings Physical Exam: No Response Verbal/Painful Stimuli, Absent Heart & Breath Sounds, No Pupillary Light Reflex, No Corneal Reflex, Pupils Fixed & Dilated, Absence of Vital Signs - Pronouncement Time Time of Pronouncement of : 13:26
--- NOTE | 2018-11-28 14:01 | CP.PCM.PRO ---
Pronouncement of Note - Clinical Findings Physical Exam: No Response Verbal/Painful Stimuli, Absent Peripheral Puls es{Carotid & Femoral}, Absent Heart & Breath Sounds, No Pupillary Light Reflex, No Corneal Reflex, Pupils Fixed & Dilated, Absence of Vital Signs - Pronouncement Time Time of Pronouncement of : 13:26
[2018-11-28] MEDS ORDERED: MethylPREDNISolone 40 mg Vial IVP STA (15:51)
[2018-11-28] MEDS ORDERED: Albuterol-Ipratrop 3 mg / 0.5 (3 ml) UD INH SCH (16:00)
--- NOTE | 2018-11-28 16:48 | PN ---
DATE: 11/28/2018 LOCATION: 5. SUBJECTIVE: This is an 82-year-old female, seen and examined in rounds for GI consultation on 11/27/2018 as requested by the admitting medical team, reexamined again today as the patient was scheduled for upper endoscopy due to recurrent episode of nausea and vomiting of coffee-ground material, which has somewhat subsided but complains of PEG pain on and off. No reported actual chest pain, palpitation, significant shortness of breath. No hemoptysis or chills or fever. The entire chart is reviewed including but not limited to the most recent lab and radiology study results, current and the previous medication list and today's white blood cells went up to 14 but still normal hemoglobin and hematocrit with normal platelet count with PT of 19 and PTT of 108. Rest of the lab results showed BUN of 58, creatinine 3.2, phosphorus 7.8, magnesium 2.5, total bilirubin 2.8 with AST 183 but normal ALT and normal alkaline phosphatase. The official report of recently done CT scan of the abdomen and pelvis is seen with reported extensive pneumatosis with possible free air with pelvic ascites and prominent hiatal hernia. The patient was essentially scheduled for possible upper endoscopy today, was canceled due to the patient's clinical presentation and the CT scan official reading. PHYSICAL EXAMINATION: GENERAL: An 82-year-old female. VITAL SIGNS: Afebrile with pulse of 80, respiratory rate of 18 to 20, blood pressure 98/56. HEENT: Showed pale dry oral mucous membrane. Nonicteric sclerae. LUNGS: Few scattered crepitation. Decreased air entry at bases. HEART: Positive S1 and S2. ABDOMEN: Soft with mild generalized tenderness. No mass or organomegaly. No rebound tenderness or guarding. IMPRESSION: 1. Possible perforated viscus only by the radiology study results with somewhat tender and firm abdomen. 2. Known history of atrial fibrillation, end-stage renal disease. 3. Coagulopathy. 4. Nausea and vomiting with hematemesis, indicative of upper gastrointestinal tract blood loss. 5. Rule out occult gastrointestinal malignancy. 6. Electrolyte imbalance, most likely secondary to her renal failure. 7. Known history of coronary artery disease, chronic obstructive pulmonary disease, reported depression with mild dementia and Alzheimer's disease. 8. End-stage renal disease, by history. 9. Status post coronary artery bypass grafting, by history. SUGGESTIONS: 1. Agree with your plan. 2. Conservative treatment and no aggressive GI workup in the meantime until the patient is more stable clinically, otherwise surgical reevaluation. Lianne Shannon MD [facility] # [id number]
[2018-11-28 17:02] VITALS: PULSE 123
[2018-11-30] MEDS ORDERED: Influenza Vaccine 60 mcg/0.5 mL SYR (4YR UP) IM ONE (10:00)
== END 2018-11-28 17:00 ==
LOC: C.ER 11:20 → C.9E 14:06 → C.6T 14:19
PROVIDERS: ADMIT Internal Medicine; ATTEND Internal Medicine
DX: K92.0 Hematemesis (principal); K55.059 Acute (reversible) ischemia of intestine, part and extent unspecified; K55.9 Vascular disorder of intestine, unspecified; I13.2 Hypertensive heart and chronic kidney disease with heart failure and with stage 5 chronic kidney disease, or end stage renal disease; I50.9 Heart failure, unspecified; G30.9 Alzheimer's disease, unspecified; F32.9 Major depressive disorder, single episode, unspecified; F02.80 Dementia in other diseases classified elsewhere, unspecified severity, without behavioral disturbance, psychotic disturbance, mood disturbance, and anxiety; J44.9 Chronic obstructive pulmonary disease, unspecified; I48.91 Unspecified atrial fibrillation; Z99.2 Dependence on renal dialysis; Z51.5 Encounter for palliative care; K44.9 Diaphragmatic hernia without obstruction or gangrene; D68.9 Coagulation defect, unspecified; E87.8 Other disorders of electrolyte and fluid balance, not elsewhere classified; N18.6 End stage renal disease; I25.10 Atherosclerotic heart disease of native coronary artery without angina pectoris; D50.0 Iron deficiency anemia secondary to blood loss (chronic)
CPT/HCPCS: 36415; 71045; 71250; 74176; 80053; 82803; 82948; 83735; 84100; 84484; 85025; 85610; 85730; 86850; 86900; 96365; 96366; 96367; 96375; 96376; 97163; 97530; 99285; C9113; G0378; G8978; G8979; J1644; J2270; J2405; J3370; J7030; J7070